=== PATIENT | female | born 1995 | race Two or more races ===

== ENCOUNTER 2017-08-04 18:09 | Emergency (ER) | payer OTHER ==
[2017-08-04 18:16] VITALS: BP 124/67; PULSE 68; RESP 16; TEMP 97.7; O2SAT 98
== END 2017-08-04 19:10 | disposition left against medical advice (07) ==
DX: Z53.21 Procedure and treatment not carried out due to patient leaving prior to being seen by health care provider (principal)

== ENCOUNTER 2017-11-01 05:39 | Emergency (ER) | payer OTHER ==
[2017-11-01] MEDS ORDERED: NS 1,000 ML IV ONE (05:55)
--- NOTE | 2017-11-01 05:55 | EDPHY ---
H & P Stated Complaint: pt , woke up this am with heavy vag bleeding/cramping Time Seen by Provider: 11/01/17 05:55 HPI/ROS: HPI CHIEF COMPLAINT: Vaginal bleeding and pelvic cramping HISTORY OF PRESENT ILLNESS: Patient is a 22-year-old female, otherwise healthy with no significant medical history she is currently she states she is about 6 weeks 4 days she woke up this morning with heavy vaginal bleeding and pelvic cramping and passing of clots. Decided come the emergency room denies any chest pain or shortness of breath. Denies fever. She denies diarrhea or vomiting or recent illness. Patient reports to me that she had an ultrasound at [facility] yesterday that showed approximately 6 week IUP. Past Medical History: Denies medical history Past Surgical History: Denies surgical history Social History: Denies drugs alcohol tobacco Family History: Noncontributory ROS REVIEW OF SYSTEMS: A comprehensive 10 point review of systems is otherwise negative aside from elements mentioned in the history of present illness. Exam Constitutional appears well nontoxic triage nursing summary reviewed, vital signs reviewed, awake/alert. Eyes normal conjunctivae and sclera, EOMI, PERRLA. HENT normal inspection, atraumatic, moist mucus membranes, no epistaxis, neck supple/ no meningismus, no raccoon eyes. Respiratory clear to auscultation bilaterally, normal breath sounds, no respiratory distress, no wheezing. Cardiovascular rate normal, regular rhythm, no murmur, no edema, distal pulses normal. Gastrointestinal soft, non-tender, no rebound, no guarding, normal bowel sounds, no distension, no pulsatile mass. Genitourinary no CVA tenderness. Musculoskeletal no midline vertebral tenderness, full range of motion, no calf swelling, no tenderness of extremities, no meningismus, good pulses, neurovascularly intact. Skin pink, warm, & dry, no rash, skin atraumatic. Neurologic awake, alert and oriented x 3, AAOx3, moves all 4 extremities equally, motor intact, sensory intact, CN II-XII intact, normal cerebellar, normal vision, normal speech. Psychiatric normal mood/affect. Heme/Lymph/Immune no lymphadenopathy. Differential Diagnosis: Includes but is not limited to in a particular order threatened miscarriage, incomplete miscarriage, ectopic Medical Decision Making: Plan for this patient IV establishment blood draw, check electrolytes, check urinalysis, check hCG quant, Rh type ultrasound. Re-evaluation: Ultrasound called to me by Dr. Noyola, shows no evidence of ectopic however endometrial stripe is thickened but no yolk sac or pole visualized. Patient is a positive. I discussed with the patient her lab results and ultrasound results. I do recommend she follows up with either [facility] or the emergency room to have her HCG repeated to make sure it is trending down. She does tell me that she had ultrasound at [facility] that showed IUP and now the ultrasound today after passing blood clots shows no IUP. Beta quant noted to be elevated. Most likely miscarriage. Return precautions discussed with her she understands return emergency develops worsening abdominal pain fever vomiting. Heavy vaginal bleeding questions or concerns. Source: Patient - Personal History EDC: 06/21/18 - Medical/Surgical History Hx Asthma: No Hx Chronic Respiratory Disease: No Hx Diabetes: No Hx Cardiac Disease: No Hx Renal Disease: No Hx Cirrhosis: No Hx Alcoholism: No Hx HIV/AIDS: No Hx Splenectomy or Spleen Trauma: No Other PMH: APPY - Social History Smoking Status: Never smoked Constitutional: Initial Vital Signs Temperature (C) 36.7 C 11/01/17 05:43 Heart Rate 64 11/01/17 05:43 Respiratory Rate 16 11/01/17 05:43 Blood Pressure 108/72 11/01/17 05:43 O2 Sat (%) 95 11/01/17 05:43 O2 Delivery Mode Room Air Allergies/Adverse Reactions: No Known Allergies Allergy (Verified 11/01/17 05:46) Home Medications: Medication Instructions Recorded NK [No Known Home Meds] 08/04/17 Medical Decision Making - Diagnostics Imaging Results: Imaging Impressions Obstetrics Ultrasound 11/01/17 05:57 Impression: 1. Abnormal intrauterine versus spontaneous in progress. 2. No evidence of ectopic . Findings discussed with Emergency Department physician, Horacio Steiner MD on 11/01/2017 at 7:03 a.m. - Data Points Laboratory Results: Laboratory Results 11/01/17 06:10 11/01/17 06:10 11/01/17 11/01/17 11/01/17 06:10 06:10 06:10 WBC 8.70 10^3/uL 10^3/uL (3.80-9.50) RBC 4.64 10^6/uL 10^6/uL (4.18-5.33) Hgb 14.2 g/dL g/dL (12.6-16.3) Hct 42.1 % % (38.0-47.0) MCV 90.7 fL fL (81.5-99.8) MCH 30.6 pg pg (27.9-34.1) MCHC 33.7 g/dL g/dL (32.4-36.7) RDW 11.9 % % (11.5-15.2) Plt Count 257 10^3/uL 10^3/uL (150-400) MPV 10.2 fL fL (8.7-11.7) Neut % (Auto) 70.6 % % (39.3-74.2) Lymph % (Auto) 19.0 % % (15.0-45.0) [place] % (Auto) 8.2 % % (4.5-13.0) Eos % (Auto) 1.6 % % (0.6-7.6) Baso % (Auto) 0.3 % % (0.3-1.7) Nucleat RBC Rel Count 0.0 % % (0.0-0.2) Absolute Neuts (auto) 6.14 10^3/uL 10^3/uL (1.70-6.50) Absolute Lymphs (auto) 1.65 10^3/uL 10^3/uL (1.00-3.00) Absolute Monos (auto) 0.71 10^3/uL 10^3/uL (0.30-0.80) Absolute Eos (auto) 0.14 10^3/uL 10^3/uL (0.03-0.40) Absolute Basos (auto) 0.03 10^3/uL 10^3/uL (0.02-0.10) Absolute Nucleated RBC 0.00 10^3/uL 10^3/uL (0-0.01) Immature Gran % 0.3 % % (0.0-1.1) Immature Gran # 0.03 10^3/uL 10^3/uL (0.00-0.10) Sodium 138 mEq/L mEq/L (135-145) Potassium 4.1 mEq/L mEq/L (3.3-5.0) Chloride 105 mEq/L mEq/L (97-110) Carbon Dioxide 25 mEq/l mEq/l (22-31) Anion Gap 8 mEq/L mEq/L (8-16) BUN 16 mg/dL mg/dL (7-23) Creatinine 0.5 mg/dL L mg/dL (0.6-1.0) Estimated GFR > 60 Glucose 87 mg/dL mg/dL (70-100) Calcium 9.4 mg/dL mg/dL (8.5-10.4) Beta HCG, Quant 69848.00 mIU/mL H mIU/mL (0.00-4.83) Patient ABO/Rh A POSITIVE Medications Given: Discontinued Medications Sodium Chloride (Ns) 1,000 mls @ 0 mls/hr IV EDNOW ONE; Wide Open PRN Reason: Protocol Stop: 11/01/17 05:56 Last Admin: 11/01/17 06:12 Dose: 1,000 mls Departure - Departure Disposition: Home, Routine, Self-Care Clinical Impression: Miscarriage Condition: Good Instructions: Miscarriage (ED) Additional Instructions: 1. Return emergency room if develops worsening abdominal pain or pelvic pain or significant vaginal bleeding 2. Follow up with [facility]. 3. Should be followed up in 48 hr to make sure your HCG is trending down. 4. Return to the emergency room if you have further significant bleeding or abdominal pain or pelvic pain. Referrals: [facility],. [Clinic] - As per Instructions Darlene Gandhi MD [Medical Doctor] - As per Instructions
[2017-11-01 06:24] LABS: PLATELET COUNT 257 10^3/uL (150-400)
[2017-11-01 07:27] VITALS: BP 110/67
== END 2017-11-01 07:34 | disposition home or self-care (01) ==
DX: O03.9 Complete or unspecified spontaneous abortion without complication (principal); E86.9 Volume depletion, unspecified